=== PATIENT | male | born 1970 | race Caucasian/White ===

== ENCOUNTER 2020-05-04 13:42 | Emergency (ER) | payer OTHER ==
[~2020-05-04] VITALS: Ht 170.2 cm; Wt 81.7 kg
[~2020-05-04 13:42] MED LIST: HYDROCODONE-AP1 EAC6 PO; PREDNISONE50 MG PO; TORADOL 10 MG T10 MG PO
[2020-05-04 14:17] LABS: ABSOLUTE LYMPHOCYTES 1.9 thou/uL (0.8-5.3); ABSOLUTE MONOCYTES 0.4 thou/uL (0.0-1.2); ABSOLUTE NEUTROPHILS 5.3 thou/uL (1.6-8.1); BASOPHILS 0.6 %; EOSINOPHILS 0.1 %; HEMATOCRIT 43.4 % (42.0-52.0); HEMOGLOBIN 15.1 gm/dL (14.0-18.0); LYMPHOCYTES 24.7 %; MCH 29.3 pg (26.0-34.0); MCHC 34.8 g/dL (28.0-37.0); MCV 84.2 fL (80.0-100.0); MONOCYTES 5.5 %; NUCLEATED RBCS 0 /100WBC; PLATELET COUNT* 141 thou/uL (150-400); POLYS 69.1 %; RBC 5.15 mil/uL (4.50-6.00); RDW-CV 13.3 % (10.5-14.5); WBC 7.6 thou/uL (4.0-11.0)
[2020-05-04 14:35] LABS: CREATININE 1.5 mg/dL (0.6-1.3); POTASSIUM 3.5 mmol/L (3.5-5.1)
[2020-05-04 14:40] LABS: ALBUMIN 3.5 g/dL (3.4-5.0); TOTAL BILIRUBIN 0.6 mg/dL (<0.1-1.0); TOTAL PROTEIN 7.7 g/dL (6.4-8.2)
[2020-05-04] MEDS ORDERED: TYLENOL WITH CO1 TA1 PO (15:27)
[2020-05-04] MEDS ORDERED: ZPAK PO (15:27)
[2020-05-04] MEDS ORDERED: MEDROLDOSEPACK PO (15:27)
[2020-05-04] MEDS ORDERED: PROAIR HFA8.5 GM INH (15:27)
[2020-05-04 16:02] VITALS: BP 153/80
--- NOTE | 2020-05-04 16:06 | EKG ---
[place] [address] ELECTROCARDIOGRAM REPORT Name: ARTUR GARCIALULÚJUN Gutierrez Room: [facility]#: [id number] Admission: 05/04/20 Attend Phys: Discharge: 05/04/20 Date of : 66 Date of Service: 05/04/20 1427 Report #: [id number] THIS REPORT FOR: //name// [facility] ED Test Date: 2020-05-04 Test Time: 14:27:16 Pat Name: JUN TURNER Department: Room: Gender: M Laser Beam Cutter: DSL : 1970 Requested By: Tom Tirado Order Number: [id number] MD: Ismael Price Measurements Intervals [place] Rate: 94 P: 27 GA: 179 QRS: -36 QRSD: 97 T: 87 QT: 353 QTc: 442 Interpretive Statements Sinus rhythm Probable left atrial enlargement Abnormal R-wave progression, late transition LVH with secondary repolarization abnormality Compared to ECG 03/30/2017 10:19:52 Left ventricular hypertrophy now present Early repolarization now present Left bundle-branch block no longer present Electronically Signed On 05-04-2020 16:06:31 CDT by Ismael Price [email or web address] <ELECTRONICALLY SIGNED> By: Isamel Price MD, [facility] 05/04/20 1606 1427 1427 Ismael Price MD, [facility] /EPI
== END 2020-05-04 16:04 | disposition home or self-care (01) ==
LOC: M.ERS 13:42
PROVIDERS: Physician Assistant
DX: J22 Unspecified acute lower respiratory infection (principal); R19.7 Diarrhea, unspecified; Z20.828 Contact with and (suspected) exposure to other viral communicable diseases

== ENCOUNTER 2021-04-09 17:04 | Observation (INO) | payer OTHER ==
[~2021-04-09] VITALS: Ht 167.6 cm; Wt 99.8 kg
[~2021-04-09 17:04] MED LIST changes: +MEDROLDOSEPACK PO; +PROAIR HFA8.5 GM INH; +TYLENOL WITH CO1 TA1 PO; +ZPAK PO
[2021-04-09 17:10] VITALS: BP 198/97
[2021-04-09 17:33] LABS: ABSOLUTE BASOPHILS 0.1 thou/uL (0.0-0.2); ABSOLUTE EOSINOPHILS 0.2 thou/uL (0.0-0.7); ABSOLUTE LYMPHOCYTES 2.4 thou/uL (0.8-5.3); ABSOLUTE MONOCYTES 0.3 thou/uL (0.0-1.2); ABSOLUTE NEUTROPHILS 3.7 thou/uL (1.6-8.1); BASOPHILS 1.4 %; EOSINOPHILS 2.5 %; HEMATOCRIT 42.3 % (42.0-52.0); HEMOGLOBIN 14.9 gm/dL (14.0-18.0); LYMPHOCYTES 35.7 %; MCH 29.2 pg (26.0-34.0); MCHC 35.2 g/dL (28.0-37.0); MCV 82.9 fL (80.0-100.0); MONOCYTES 4.8 %; MPV 8.7 fl. (7.2-11.1); NUCLEATED RBCS 0 /100WBC; PLATELET COUNT* 231 thou/uL (150-400); POLYS 55.6 %; RDW-CV 13.4 % (10.5-14.5); WBC 6.6 thou/uL (4.0-11.0)
[2021-04-09 17:39] LABS: CALCIUM 8.9 mg/dL (8.5-10.1); CREATININE 1.1 mg/dL (0.6-1.3); POTASSIUM 3.3 mmol/L (3.5-5.1)
[2021-04-09 17:50] LABS: ALBUMIN 3.8 g/dL (3.4-5.0); TOTAL BILIRUBIN 0.2 mg/dL (<0.1-1.0); TOTAL PROTEIN 7.5 g/dL (6.4-8.2)
[2021-04-09 20:42] VITALS: BP 186/93
[2021-04-09 20:45] VITALS: BP 200/103
[2021-04-09 21:54] VITALS: BP 178/87
[2021-04-09 23:57] VITALS: BP 174/91
[2021-04-10 04:32] VITALS: BP 161/93
[2021-04-10 07:13] LABS: URINE BILIRUBIN NEGATIVE (Negative); URINE BLOOD NEGATIVE (Negative); URINE CLARITY CLEAR; URINE COLOR YELLOW; URINE GLUCOSE-RANDOM NEGATIVE (Negative); URINE KETONES NEGATIVE (Negative); URINE LEUKOCYTES-REFLEX NEGATIVE (Negative); URINE NITRITE-REFLEX NEGATIVE (Negative); URINE PROTEIN 1+ (Negative); URINE UROBILINOGEN 0.2 E.U./dl (0.2-1.0)
[2021-04-10 07:42] VITALS: BP 176/95
[2021-04-10 09:23] LABS: ANION GAP 8 mmol/L (7-16); BUN 19 mg/dL (7-18); CALCIUM 8.4 mg/dL (8.5-10.1); CHLORIDE 108 mmol/L (98-107); CO2 26 mmol/L (21-32); GLUCOSE 98 mg/dL (70-99); POTASSIUM 3.5 mmol/L (3.5-5.1); SODIUM 142 mmol/L (136-145); TROPONIN-I LEVEL <0.06 ng/mL (<0.06)
--- NOTE | 2021-04-10 10:30 | EKG ---
[place] [address] ELECTROCARDIOGRAM REPORT Name: SIDDIQUIJUN GARCIA Room: [address] M.R.#: [id number] Admission: 04/09/21 Attend Phys: Hermelindo Cervantes Discharge: Date of : 66 Date of Service: 04/09/21 1733 Report #: [id number] THIS REPORT FOR: //name// [facility] ED Test Date: 2021-04-09 Test Time: 17:33:06 Pat Name: JUN TURNER Department: Room: [facility] Gender: M Document Controller: CD : 1970 Requested By: Corby Heath Order Number: [id number] MD: Josh Robledo Measurements Intervals [place] Rate: 75 P: -21 NV: 180 QRS: -30 QRSD: 103 T: 139 QT: 405 QTc: 453 Interpretive Statements Sinus rhythm Ventricular premature complex LVH with secondary repolarization abnormality Anterior ST elevation, probably due to LVH Compared to ECG 05/04/2020 14:27:16 Ventricular premature complex(es) now present Electronically Signed On 04-10-2021 10:30:38 CDT by Josh Robledo [email or web address] <ELECTRONICALLY SIGNED> By: Josh Robledo MD, [facility] 04/10/21 1030 1733 1733 Josh Robledo MD, [facility] /EPI
[2021-04-10 11:45] VITALS: BP 170/91
--- NOTE | 2021-04-10 11:51 | 2DMMODE ---
[place] [address] 2 D/M-MODE ECHOCARDIOGRAM Name: JUN MELARA Room: [address] [place]#: [id number] Admission: 04/09/21 Attend Phys: Hermelindo Cervantes Discharge: Date of : 66 Date of Service: 04/10/21 1151 Report #: [id number] THIS REPORT FOR: cc: FAM - No family physician/PCP FAM - No family physician/PCP Josh Robledo MD [facility] ~ APPROVED REPORT Study performed: 04/10/2021 10:58:50 EXAM: Comprehensive 2D, Doppler, and color-flow Echocardiogram Patient Location: In-Patient Room #: [facility] Status: routine BSA: 2.08 HR: 75 bpm BP: 176/95 mmHg Rhythm: NSR Indications Hypertension/HDD 2D Dimensions IVSd: 19.21 (7-11mm) LVOT Diam: 21.29 (18-24mm) LVDd: 53.36 mm PWd: 15.56 (7-11mm) Ascending Ao: 35.23 (22-36mm) LVDs: 38.87 (25-40mm) Aortic Root: 38.44 mm Volumes Left Atrial Volume (Systole) LA ESV Index: 41.40 mL/m2 Aortic Valve AoV Peak Isaac.: 1.50 m/s AO Peak Gr.: 9.04 mmHg LVOT Max P.06 mmHg AO Mean Gr.: 5.22 mmHg LVOT Mean P.38 mmHg LVOT Max V: 1.12 m/s AO V2 VTI: 26.52 cm LVOT Mean V: 0.70 m/s DEMETRICE (VTI): 3.03 cm2 LVOT V1 VTI: 22.57 cm Mitral Valve E/A Ratio: 0.58 MV Decel. Time: 138.82 [place] [address] 2 D/M-MODE ECHOCARDIOGRAM Name: JUN MELARA Room: [address]#: [id number] Admission: 04/09/21 Attend Phys: Hermelindo Cervantes Discharge: Date of : 66 Date of Service: 04/10/21 1151 Report #: [id number] MV E Max Isaac.: 0.50 m/s MV PHT: 40.26 ms MVA (PHT): 5.46 cm2 TDI E/Lateral E': 5.00 E/Medial E': 7.14 Medial E' Isaac.: 0.07 m/s Lateral E' Isaac.: 0.10 m/s Pulmonary Valve PV Peak Isaac.: 1.29 m/s PV Peak Gr.: 6.65 mmHg Tricuspid Valve RAP Estimate: 5.00 mmHg TR Peak Gr.: 22.26 mmHg RVSP: 27.00 mmHg PA Pressure: 27.00 mmHg Left Ventricle The left ventricle is normal size. There is normal LV segmental wall motion. Moderate concentric left ventricular hypertrophy. Left ventricular systolic function is normal. The left ventricular ejection fraction is within the normal range. LVEF is 60-65%. Grade I - abnormal relaxation pattern. Right Ventricle The right ventricle is normal size. The right ventricular systolic function is normal. Atria Left atrium is moderately dilated. The right atrium size is normal. Aortic Valve The aortic valve is normal in structure. Trace aortic regurgitation. There is no aortic valvular stenosis. Mitral Valve The mitral valve is normal in structure. Trace mitral regurgitation. No evidence of mitral valve stenosis. Tricuspid Valve The tricuspid valve is normal in structure. Trace tricuspid regurgitation. No pulmonary hypertension. Pulmonic Valve The pulmonary valve is normal in structure. [place] [address] 2 D/M-MODE ECHOCARDIOGRAM Name: JUN MELARA Room: [address] M.RMeaghan#: [id number] Admission: 04/09/21 Attend Phys: Hermelindo Cervantes Discharge: Date of : 66 Date of Service: 04/10/21 1151 Report #: [id number] valvular regurgitation. Great Vessels The aortic root is normal in size. IVC is normal in size and collapses >50% with inspiration. Pericardium There is no pericardial effusion. <Conclusion> Moderate concentric left ventricular hypertrophy. LVEF is 60-65%. Left atrium is moderately dilated. Trace aortic regurgitation. Trace mitral regurgitation. <ELECTRONICALLY SIGNED> By: Josh Robledo MD, FACC 04/10/21 1151 1151 115 Josh Robledo MD, FACC /INF
[2021-04-10] MEDS ORDERED: NORVASC5 MG PO (14:10)
[2021-04-10] MEDS ORDERED: LISINOPRIL10 MG PO (14:10)
[2021-04-10 16:03] VITALS: BP 170/91
== END 2021-04-10 16:20 | disposition home or self-care (01) ==
LOC: M.ERS 17:04 → M.TBA-ER 19:49 → M.2W 20:44
PROVIDERS: Family Medicine; Internal Medicine; ADMIT Internal Medicine; ATTEND Internal Medicine
DX: I16.0 Hypertensive urgency (principal); Z20.822 Contact with and (suspected) exposure to COVID-19; I51.7 Cardiomegaly; R42 Dizziness and giddiness; M25.50 Pain in unspecified joint; Z79.899 Other long term (current) drug therapy